=== PATIENT | male | born 1980 | race Caucasian/White ===

== ENCOUNTER 2016-10-09 07:43 | Observation (INO) | payer BC ==
[~2016-10-09 07:43] MED LIST: Buffered Lidocaine 1% SYR 3ML* 3 ML/SYR SYRINGE INTRADERM ONE
[2016-10-09] MEDS ORDERED: Buffered Lidocaine 1% SYR 3ML* 3 ML/SYR SYRINGE ONE (08:09)
[2016-10-09] MEDS ORDERED: ceFAZolin 2 GM PREMIX (*) 2 GM/50 ML BAG IVPB ONE (08:09)
[2016-10-09] MEDS ORDERED: Thrombin 5,000 UNITS* 1 APPLIC KIT - topical use - TOPICAL ONE (09:44)
[2016-10-09] MEDS ORDERED: Lidocain 1% EPI 1:100,000 * 30 ML MDV ONE (09:44)
[2016-10-09] MEDS ORDERED: Bacitracin IV* 50,000 UNITS INJ ONE (09:44)
[2016-10-09] MEDS ORDERED: fentaNYL* 50 MCG/ML 2 ML VIAL (100 MCG VIAL) ONE ×3 (10:11→12:06)
[2016-10-09] MEDS ORDERED: Propofol* 10 MG/ML 20 ML BTL IV PUSH ONE (10:12)
[2016-10-09] MEDS ORDERED: Atracurium* 10 MG/ML 10 ML VIAL ONE (10:12)
[2016-10-09] MEDS ORDERED: Lidocaine 2% MPF* 2 ML VIAL ONE (10:12)
[2016-10-09] MEDS ORDERED: DiMENhydriNATE IV* 50 MG/ML VIAL IV PUSH PRN (10:51)
[2016-10-09] MEDS ORDERED: Ketorolac INJ* 30 MG/ML 1 ML VIAL IV PRN (10:51)
[2016-10-09] MEDS ORDERED: Ondansetron INJ* 2 MG/ML VIAL IV PRN (11:51)
[2016-10-09] MEDS ORDERED: Magnesium Hydroxide LIQ* 30 ML UDC PO PRN (11:51)
[2016-10-09] MEDS ORDERED: Acetaminophen TAB* 325 MG PO PRN (11:51)
[2016-10-09] MEDS ORDERED: Ketorolac INJ* 30 MG/ML 1 ML VIAL ONE (12:07)
[2016-10-09] MEDS: fentaNYL* 50 MCG/ML 2 ML VIAL (100 MCG VIAL) IV PRN ×5 (12:11→12:34)
[2016-10-09] MEDS ORDERED: oxyCODONE/Acetamin 5/325 MG* TAB ONE (12:18)
[2016-10-09] MEDS ORDERED: fentaNYL* 50 MCG/ML 5 ML VIAL (250 MCG VIAL) ONE (12:19)
[2016-10-09] MEDS: oxyCODONE/Acetamin 5/325 MG* TAB PO PRN ×2 (12:20→12:22)
[2016-10-09] MEDS ORDERED: DiMENhydriNATE IV* 50 MG/ML VIAL ONE (12:27)
[2016-10-09] MEDS ORDERED: HYDROmorphone INJ* 1 MG/ML CARPUJECT SYRINGE ONE (12:36)
[2016-10-09] MEDS: HYDROmorphone INJ* 1 MG/ML CARPUJECT SYRINGE IV SLOW PU PRN ×3 (12:37→12:47)
[2016-10-09] MEDS ORDERED: Nicotine PATCH 21 MG/24 HR* PATCH TRANSDERM SCH (13:00)
[2016-10-09] MEDS: HYDROcodone/ACETAMIN 5-325 MG* 1 TAB PO PRN ×3 (15:36→23:36)
[2016-10-09] MEDS: Nicotine Patch Removal NOTE FOLLOW UP SCH (19:36)
[2016-10-10] MEDS: HYDROcodone/ACETAMIN 5-325 MG* 1 TAB PO PRN ×3 (03:26→11:55)
[2016-10-10] MEDS: Nicotine Patch Removal NOTE FOLLOW UP SCH (05:45)
--- NOTE | 2016-10-10 07:34 | PN ---
Progress Note - Progress Note SOAP: Subjective: []Doing well except for back pain Pre op leg pain better Objective: []Dressing dry Neuro intact Moderate back spasm Assessment: []Stable post op Plan: []D/C today D/C instructions given
[2016-10-10] MEDS ORDERED: Influenza VAC *QUAD* 2016-17* 0.5 ML SYRINGE IM ONE (09:00)
[2016-10-10 12:19] VITALS: BP 132/80
--- NOTE | 2016-10-10 20:42 | DS ---
DISCHARGE SUMMARY: DATE OF ADMISSION: 10/09/16 DATE OF DISCHARGE: 10/10/16 DISCHARGE DIAGNOSES: 1. Herniated nucleus pulposus at L5-S1 on the right. 2. Asthma. SPECIAL PROCEDURE: Lumbar diskectomy at L5-S1 on the right. HOSPITAL COURSE: This 36-year-old male was seen in office with signs and symptoms of lumbar radiculopathy. He failed to improve with several weeks of conservative treatment and was admitted at this time for elective surgical intervention. On the day of admission, he was taken to surgery, where under general anesthesia, lumbar diskectomy at L5-S1 on the right operation was carried out. Postoperatively, he was feeling well. Pain has been well controlled with oral pain medications. He is ambulating independently. He was eating, drinking, and voiding without difficulty. DISCHARGE DISPOSITION: On his first postoperative day, he was discharged home to the care of his family. DISCHARGE INSTRUCTIONS: Discharge instructions including wound care and activity level were discussed with the patient and provided. FOLLOWUP: He will be seen in office in approximately 10 days for followup and staple removal. DISCHARGE MEDICATIONS: 1. Pelican 5/325 mg 2 tabs by mouth every 4 hours as needed for pain. 2. Cyclobenzaprine 10 mg 1 tab 3 times daily as needed for muscle spasm. [place] [id number]/[facility] #: [id number] MTDD
--- NOTE | 2016-10-12 01:59 | OP ---
DATE OF OPERATION: 10/09/16 - ROOM #351 DATE OF : 82. PRIMARY SURGEON: Ed Barr MD. ANESTHESIOLOGIST: Casper Buenrostro MD ANESTHESIA: General. PRE-OP DIAGNOSIS: Herniated nucleus pulposus, L5-S1 on the right. POST-OP DIAGNOSIS: Herniated nucleus pulposus, L5-S1 on the right. OPERATIVE PROCEDURE: Lumbar diskectomy, L5-S1 on the right with microdissection. DESCRIPTION OF PROCEDURE: After satisfactory general anesthesia was obtained, the patient was placed on the operating table in the prone position with the chest supported on the Syed frame and the back slightly flexed. The lumbar region was then clipped, prepped and draped in a sterile manner for lumbar laminectomy and a skin incision outlined from L5 to the sacrum. This incision was infiltrated with 1% Xylocaine with epinephrine after which it was turned down sharply to the level of the lumbar fascia. The fascia was divided along the spinous processes of L5 in the upper sacrum and the paraspinal musculature stripped away from these posterior elements using the periosteal elevator and monopolar cautery. The L5-S1 interspace was identified by palpating the sacrum and moving up to the first movaeable interspace. A partial hemilaminectomy was then carried out by removing the inferior aspect of the L5 lamina and medial aspect of the facet complex with a combination of the [place] Cristian drill and Kerrison rongeurs. This was carried superiorly until the attachment of the ligamentum flavum was taken down. Ligamentum flavum was then removed and generous foraminotomy carried out over the S1 nerve root. At this point of the procedure, the operating microscope was brought into the field and the remainder of the procedure done utilizing microdissection. Utilizing microdissection, epidural venous structures were coagulated and divided. Projecting beneath the S1 nerve root was noted to be extruded disk material to include cartilaginous end plate. This was removed in multiple fragments. There appeared to be a more chronically herniated component centrally, which was ultimately decompressed utilizing a combination of angled-up and angled- down curettes as well as pituitary rongeurs. At the conclusion of the decompression, the S1 nerve root was noted to be free in its course. The wound was then thoroughly irrigated and after satisfactory hemostasis was obtained, a piece of Gelfoam was placed over the laminectomy defect. The fascia was then reapproximated with 0-Vicryl sutures. The subcutaneous tissue was closed with 3 -0 Vicryl suture and the skin closed with skin michael. The estimated blood loss was 200 cc, and the final sponge, padding, and needle counts were correct. The patient was taken to the recovery room, extubated and in stable condition. [id number]/[facility] #: [id number] MTDFelisa
== END 2016-10-10 12:20 | disposition home or self-care (01) ==
LOC: OR 07:43 → SSU 11:29
PROVIDERS: ADMIT Neurological Surgery; ATTEND Neurological Surgery
PROC: 01NB0ZZ Release Lumbar Nerve, Open Approach (ICD-10-PCS; 2016-10-09)
PROC: 0RB30ZZ Excision of Cervical Vertebral Disc, Open Approach (ICD-10-PCS; principal; 2016-10-09 09:30)
DX: M51.17 Intervertebral disc disorders with radiculopathy, lumbosacral region (principal); M51.26 Other intervertebral disc displacement, lumbar region; J45.909 Unspecified asthma, uncomplicated; F17.210 Nicotine dependence, cigarettes, uncomplicated; Z23 Encounter for immunization
CPT/HCPCS: 88304; 90471; 96374; 96375; A9270-GY; G0008; G0378; J0690; J1170; J1240; J1885; J2704; J3010